=== PATIENT | male | born 1990 | race African-American/Black ===

== ENCOUNTER 2025-05-07 21:54 | Emergency (ER) | payer MEDICAID ==
[~2025-05-07] VITALS: Ht 182.9 cm; Wt 88.0 kg
[2025-05-07 22:06] VITALS: O2SAT 99
[2025-05-07] MEDS: HYDROCODONE/ACETAMINOPHEN 10/325MG TABLET PO ONE (23:35)
[2025-05-08] MEDS: LIDOCAINE HCL 1% 20ML VIAL INFIL ONE (00:03)
[2025-05-08] MEDS ORDERED: IBUP-2030 MT (01:10)
[2025-05-08] MEDS ORDERED: HYDR-4009 MT (01:10)
[2025-05-08 01:25] VITALS: BP 105/61; PULSE 61; RESP 16; TEMP 36.8; O2SAT 99
== END 2025-05-08 01:25 | disposition home or self-care (01) ==
LOC: ER 21:54
DX: S62.336A Displaced fracture of neck of fifth metacarpal bone, right hand, initial encounter for closed fracture (principal); W22.01XA Walked into wall, initial encounter; Y93.89 Activity, other specified; Y92.89 Other specified places as the place of occurrence of the external cause; Y99.8 Other external cause status
CPT/HCPCS: 73130 ×2; 26605; 99284; J2003; Z7610 ×2